=== PATIENT | male | born 1955 | race Caucasian/White ===

== ENCOUNTER 2019-12-24 10:18 | Emergency (ER) | payer OTHER ==
[~2019-12-24] VITALS: Ht 167.6 cm; Wt 89.4 kg
[2019-12-24] MEDS ORDERED: LOVAZA1 GM PO (10:27)
[2019-12-24] MEDS ORDERED: FORTAMET1000 MG (10:27)
[2019-12-24] MEDS ORDERED: LEVO-T75 MCG (10:28)
[2019-12-24] MEDS ORDERED: LIPITOR40 MG PO (10:28)
[2019-12-24] MEDS ORDERED: KAPSPARGO SPRI100 MG PO (10:28)
[2019-12-24] MEDS ORDERED: GLIMEPIRIDE4 M1 PO (10:28)
[2019-12-24] MEDS ORDERED: TRILIPIX135 MG PO (10:28)
[2019-12-24] MEDS ORDERED: VALSARTAN-HCTZ1 EAC4 PO (10:29)
== END 2019-12-24 13:37 | disposition home or self-care (01) ==
LOC: ER 10:18
DX: M25.561 Pain in right knee (principal)

== ENCOUNTER 2022-08-25 09:11 | Outpatient (CLI) | payer OTHER ==
[~2022-08-25 09:11] MED LIST: FORTAMET1000 MG; GLIMEPIRIDE4 M1 PO; KAPSPARGO SPRI100 MG PO; LEVO-T75 MCG; LIPITOR40 MG PO; LOVAZA1 GM PO; TRILIPIX135 MG PO; VALSARTAN-HCTZ1 EAC4 PO
== END 2022-08-25 09:35 | disposition home or self-care (01) ==
LOC: LAB 09:11
PROVIDERS: ATTEND Internal Medicine Hematology & Oncology
DX: D50.8 Other iron deficiency anemias (principal); R97.20 Elevated prostate specific antigen [PSA]; E55.9 Vitamin D deficiency, unspecified; I10 Essential (primary) hypertension; R74.02 Elevation of levels of lactic acid dehydrogenase [LDH]; K76.89 Other specified diseases of liver; C25.9 Malignant neoplasm of pancreas, unspecified